=== PATIENT | female | born 1950 | race Caucasian/White ===

== ENCOUNTER 2016-05-17 15:45 | Emergency (ER) | payer MEDICARE, OTHER ==
[~2016-05-17 15:45] MED LIST: INSNOV7030 SC; JANUMET1 TAB PO; NEXIUM40 PO; PCET PO; SYN1 PO
== END 2016-05-17 17:11 | disposition home or self-care (01) ==
LOC: ER 15:45
DX: M86.9 Osteomyelitis, unspecified (principal); L03.011 Cellulitis of right finger; E11.9 Type 2 diabetes mellitus without complications; Z79.4 Long term (current) use of insulin; Z79.899 Other long term (current) drug therapy
CPT/HCPCS: 73130-RT; 96365; 99284